=== PATIENT | female | born 1965 | race Caucasian/White ===

== ENCOUNTER 2022-06-18 08:05 | Outpatient (CLI) | payer OTHER, SELFPAY | END 2022-06-18 08:06 | disposition home or self-care (01) | PROVIDERS: PCP Physician Assistant Medical; Visit Provider Physician Assistant Medical | DX: R73.03 Prediabetes (principal); E78.5 Hyperlipidemia, unspecified; G25.81 Restless legs syndrome; R73.9 Hyperglycemia, unspecified | CPT/HCPCS: 80053; 80061; 84443 ==

== ENCOUNTER 2022-09-16 10:59 | Outpatient (CLI) | payer OTHER, SELFPAY | END 2022-09-16 11:00 | disposition home or self-care (01) | LOC: NFLDREF 09-17 19:49 | PROVIDERS: PCP Physician Assistant Medical; Referring Provider Physician Assistant Medical; Visit Provider Physician Assistant Medical | DX: E78.2 Mixed hyperlipidemia (principal) | CPT/HCPCS: 80061; 84450; 84460 ==

== ENCOUNTER 2022-10-07 12:53 | Outpatient (CLI) | payer OTHER, SELFPAY ==
--- NOTE | 2022-10-07 13:00 | CRLHL7_ITS ---
For Patients: As a result of the Century Cures Act, medical imaging exams and procedure reports are released immediately into your electronic medical record. You may view this report before your referring provider. If you have questions, please contact your health care provider. BILATERAL SCREENING MAMMOGRAM WITH COMPUTER-AIDED DETECTION TECHNIQUE: CC and MLO views were obtained. These mammographic images have been obtained using full-field digital technique. These mammographic images were interpreted with the benefit of computer-aided detection. COMPARISON FILM: 06/13/20, 07/17/17, 10/26/15 FINDINGS: There are scattered areas of fibroglandular density IMPRESSION: There is no radiographic evidence for malignancy. ASSESSMENT: BI-RADS Category 1: Negative RECOMMENDATION: Routine screening mammogram in 1 year. A lay language report of this examination will be provided to the patient. Rodney Smith M.D. Diagnostic Radiologist [email or web address] JEN/[email or web address] Transcribed: 3:35 p.anival marin/Dictated by: Rodney Smith MD @ 10/09/2022 12:43:00 PM (Electronically Signed)
== END 2022-10-07 12:54 | disposition home or self-care (01) ==
LOC: MAMMO 12:53
PROVIDERS: PCP Physician Assistant Medical; Visit Provider Physician Assistant Medical
DX: Z12.31 Encounter for screening mammogram for malignant neoplasm of breast (principal)
CPT/HCPCS: 77067

== ENCOUNTER 2023-01-03 11:00 | Outpatient (CLI) | payer OTHER, SELFPAY | END 2023-01-03 11:01 | disposition home or self-care (01) | LOC: NFLDREF 01-06 08:59 | PROVIDERS: PCP Physician Assistant Medical; Referring Provider Physician Assistant Medical; Visit Provider Physician Assistant Medical | DX: E78.2 Mixed hyperlipidemia (principal) | CPT/HCPCS: 80061; 84450; 84460 ==

== ENCOUNTER 2023-11-14 16:06 | Outpatient (CLI) | payer OTHER, SELFPAY ==
--- OUTSIDE RECORDS SUMMARY | 2023-11-14 16:11 | XMS_ITS | Referral Summary ---
Author Organization [place] Address [address] [place] [id number] Care Team Providers Care Car Sales Consultant Name Role Phone Jorge Palencia PA-C Primary Care Provider [phone] Encounters Date Type Department Care Team Description 10/21/2023 Travel 10/21/2023 2:11 PM CDT - 10/21/2023 11:59 PM CDT Hospital Encounter [facility] [address] [place] [phone] Israel Genao DPM Arthritis of right foot Discharge Disposition: Home or Self Care 10/02/2023 MyC Medical Advice [address] [place] [address] Israel Genao DPM Arthritis of right foot (Primary Dx) from Last 3 Months Allergies Active Allergy Reactions Criticality Noted Date Comments Ezetimibe Muscle Pain (Myalgia) 10/01/2019 Nickel 05/01/2018 Penicillins 05/01/2018 Unsure Statins Other (See Comments) 10/01/2019 Leg pain Medications Medication Sig Dispensed Refills Start Date End Date Status simvastatin (ZOCOR) 5 MG tablet Take 5 mg by mouth At Bedtime Active pramipexole (MIRAPEX) 0.25 MG tablet Take 0.25 mg by mouth At Bedtime Active Multiple Vitamins-Minerals (MULTIVITAMIN ADULT PO) Take 1 tablet by mouth daily Active FLUTICASONE PROPIONATE EX [place] 2 sprays in nostril daily as needed Active order for DMEIndications:PTTD (posterior tibial tendon dysfunction),S/P foot surgery, left Equipment being ordered: roll about scooter 1 Device 10/11/2019 Active Additional Information Patient not taking.Reported on 12/21/2019 order for DMEIndications:PTTD (posterior tibial tendon dysfunction),S/P foot surgery, left Equipment being ordered: RollAbout knee scooter x 3 months. Requested 2/2 to difficulty with crutches and instability because of limited upper body strength. 1 Device 10/12/2019 Active Additional Information Patient not taking.Reported on 12/21/2019 Active Problems Problem Noted Date Diagnosed Date PTTD (posterior tibial tendon dysfunction) 09/21 Overview: Added automatically from request for surgery [id number] Right supracondylar humerus fracture, closed, initial encounter 05/01/2018 Surgery follow-up 05/01/2018 Resolved Problems Problem Noted Date Diagnosed Date Resolved Date S/P foot surgery, left 11/29/201903/06 Social History Tobacco Use Types Packs/Day Years Used Date Smoking Tobacco: Never Smokeless Tobacco: Never Tobacco Cessation:Counseling Given: Yes Alcohol Use Standard Drinks/Week Comments Yes 0 (1 standard drink = 0.6 oz pur e alcohol) Occasionally Adolescent Education Answer Date Record ed Getting School Help Needed Not on file 11/24 Sex and Gender Information Value Date Recorded Sex Assigned at Not on file Gender Identity Not on file Sexual Orientation Not on file Last Filed Vital Signs Vital Sign Reading Time Taken Comments Blood Pressure 128/77 10/21/2023 2:35 PM CDT Pulse 78 10/21/2023 2:35 PM CDT Temperature 36.3 ??C (97.4 ??F) 10/07/2019 1:00 PM CD T Respiratory Rate 16 03/19/2023 1:23 PM TOY PAINTER Oxygen Saturation 97% 10/21/2023 2:35 PM CDT Inhaled Oxygen Concentration - - Weight 101.6 kg (224 lb) 04/01/2022 4:12 PM TOY PAINTER Height 175.3 cm (5' 9) 04/01/2022 4:12 PM TOY PAINTER Body Mass Index 33.08 04/01/2022 4:12 PM TOY PAINTER Plan of Treatment Not on file Medical Devices Implanted Type Area Manager Sourcing Device Identifier Shelf Expiration Date Model / Serial / Lot Imp Scr Syn Cortic 3.5x16mm Self Tap Ti 404.816 Implanted:Qty : 1 on 05/01/2018 by Omi Quintana MD at [facility] Metallic Hardware/Anc hor Right: Humerus SYNTHES-STRATEC 404.816 / / [id number] Imp Scr Syn Cortic 3.5x18mm Self Tap Ti 404.818 Implanted:Qty : 1 on 05/01/2018 by Omi Quintana MD at [facility] Metallic Hardware/Anc hor Right: Humerus SYNTHES-STRATEC 404.818 / / [id number] Imp Scr Syn Cortic 3.5x22mm Self Tap Ti 404.822 Implanted:Qty : 1 on 05/01/2018 by Omi Quintana MD at [facility] Metallic Hardware/Anc hor Right: Humerus SYNTHES-STRATEC 404.822 / / [id number] Imp Scr Syn Cortic 3.5x24mm Self Tap Ti 404.824 Implanted:Qty : 1 on 05/01/2018 by Omi Quintana MD at [facility] Metallic Hardware/Anc hor Right: Humerus SYNTHES-STRATEC 404.824 / / [id number] Imp Scr Syn Cortic 3.5x26mm Self Tap Ti 404.826 Implanted:Qty : 2 on 05/01/2018 by Omi Quintana MD at [facility] Metallic Hardware/Anc hor Right: Humerus SYNTHES-STRATEC 404.826 / / [id number] Imp Scr Syn Cortic 3.5x28mm Self Tap Ti 404.828 Implanted:Qty : 2 on 05/01/2018 by Omi Quintana MD at [facility] Metallic Hardware/Anc hor Right: Humerus SYNTHES-STRATEC 404.828 / / [id number] Imp Plate Syn Lcp [id number] 10h Ti 445.101 Implanted:Qty : 1 on 05/01/2018 by Omi Quintana MD at [facility] Metallic Hardware/Anc hor Right: Humerus SYNTHES-STRATEC 445.101 / / [id number] 4mm Low Profile Screws, Cannulated, Titanium, Partially Threaded, 36mm Length Implanted:Qty : 1 on 10/07/2019 by Israel Genao DPM at [facility] Left: Foot ARTHREX AR-8740-3 6PTS / / [id number] 4mm Low Profile Screws, Cannulated, Titanium, Partially Threaded, 48mm Length Implanted:Qty : 1 on 10/07/2019 by Israel Genao DPM at [facility] Left: Foot ARTHREX AR-8740-4 8PTS / / [id number] Procedures Procedure Name Priority Date/Time Associated Diagnosis Comments XR JOINT INJECTION SMALL RIGHT Routine 10/21/2023 3:18 PM CDT Arthritis of right foot GLUCOSE Routine 05/02/2018 5:35 AM TOY PAINTER Closed fracture of distal end of humerus, unspecified fracture morphology, initial encounter from Last 3 Months or Most Recently Relevant to Health Maintenance Results * XR Joint Injection Small Right (10/21/2023 3:18 PM CDT) Anatomical Region Laterality Modality Extremity Right Radio Fluoroscop y Impressions 10/21/2023 3:42 PM CDT IMPRESSION: ??Technically successful right second TMT joint steroid/anesthetic injection with favorable initial pain relief. Long-term results pending. SIMON CARR PA-C Narrative 10/21/2023 3:42 PM CDT XR JOINT INJECTION SMALL RIGHT ? 10/21/2023 3:18 PM ?? History: ??Right 2nd TMT joint pain; Arthritis of right foot. PROCEDURE: The risks (including bleeding, infection, and allergy to contrast and medications) and benefits of the procedure were explained to the patient and consent was obtained. ??1% lidocaine was used for local anesthesia. Using sterile technique and fluoroscopic guidance, a #25 gauge needle was placed into the right second TMT joint using a dorsal approach. ??Contrast was injected to confirm intraarticular location of the needle tip. Contrast seen across the mid foot. The steroid anesthetic mixture was then injected. Estimated blood loss during the procedure was less than 5 mL. No specimens collected. No initial complications. ?? Fluoro time: 0.3 minutes Images Obtained: 3 Medications: 3 mL 1% lidocaine, 1 mL of Isovue-M 200, 40 mg of Kenalog and 1 mL Marcaine 0.5% The patients pain level (0-10 scale) were as follows: PRE INJECTION ?? 6 POST INJECTION 0 Procedure Note Simon Carr PA-C - 10/21/2023 XR JOINT INJECTION SMALL RIGHT 10/21/2023 3:18 PM History: Right 2nd TMT joint pain; Arthritis of right foot. PROCEDURE: The risks (including bleeding, infection, and allergy to contrast and medications) and benefits of the procedure were explained to the patient and consent was obtained. 1% lidocaine was used for local anesthesia. Using sterile technique and fluoroscopic guidance, a #25 gauge needle was placed into the right second TMT joint using a dorsal approach. Contrast was injected to confirm intraarticular location of the needle tip. Contrast seen across the mid foot. The steroid anesthetic mixture was then injected. Estimated blood loss during the procedure was less than 5 mL. No specimens collected. No initial complications. Fluoro time: 0.3 minutes Images Obtained: 3 Medications: 3 mL 1% lidocaine, 1 mL of Isovue-M 200, 40 mg of Kenalog and 1 mL Marcaine 0.5% The patients pain level (0-10 scale) were as follows: PRE INJECTION 6 POST INJECTION 0 IMPRESSION: Technically successful right second TMT joint steroid/anesthetic injection with favorable initial pain relief. Long-term results pending. SIMON CARR PA-C Israel Genao DPM IMG DIAGNOSTIC IM AGING ORDERABLES * (ABNORMAL) Glucose (05/02/2018 5:35 AM TOY PAINTER) Glucose 108(H) 70 - 99 mg/dL 05/02/2018 6:32 AM TOY PAINTER [facility] Blood specimen (specimen) 05/02/2018 5:35 AM TOY PAINTER 05/02/2018 5:36 AM TOY PAINTER Omi Quintana MD LAB - BLOOD ORDERABL ES [facility] [address] [place] [address], [facility] [phone] from Last 3 Months or Most Recently Relevant to Health Maintenance Advance Directives For more information, please contact: [phone] * Full Code (Latest Code Status on File) Date Activated Date Inactivated Comments 05/01/2018 5:42 PM 05/02/2018 2:15 PM Question Answer Comments Code status determined by: Discussion with patie nt/legal decision maker * Full Code Date Activated Date Inactivated Comments 05/01/2018 1:15 PM 05/01/2018 5:41 PM Question Answer Comments Code status determined by: Discussion with patie nt/legal decision maker Care Teams Car Sales Consultant Relationship Specialty Start Date End Date Jorge Palencia PA-C [facility] [place] [address] [place] [address] PCP - General 05/01/18
--- OUTSIDE RECORDS SUMMARY | 2023-11-14 16:11 | XMS_ITS | Clinical Summary ---
Author Organization [employer] Address [address] [address] Care Team Providers Care Cigarette Machines Mechanic Name Role Phone Bruna Boss MD Primary Care Provider [phone] Source Comments You are receiving this document as you are listed as the primary care provider,follow-up provider, or the patient has been referred to you for consultation.This is in compliance with the Medicare and[facility] EHR Incentive Program,which states Providers who transition their patient to another setting of careor provider of care or refers their patient to another provider of care shouldprovide summary care record for each transition of care or referral. [employer] Allergies Active Allergy Reactions Criticality Noted Date Comments Nickel Rash 05/01/2018 Penicillins 11/21/2003 PN: LW Reaction: rash Medications Medication Sig Dispensed Refills Start Date End Date Status Multiple Vitamins-Minerals (MULTIVITAMIN OR) Take 1 tablet by mouth daily (every 24 hours). 100 13 11/21/2003 Active simvastatin (AKA ZOCOR) 20 MG tablet Take 1 tablet by mouth every evening. LW Comment:Needs Appt within 30 days LW Addl Instr:Indicated for: High Cholesterol 30 09/05/2009 Active pramipexole (MIRAPEX) 0.25 MG tablet Take 0.25 Tablets by mouth daily. 3 11/27/2018 Active Active Problems Problem Noted Date Diagnosed Date Hyperlipidemia 02/07/2006 Overview (10/05/2015): LW Onset: 2003 History of section 08/29/2002 Overview (10/23/2016): LW Onset: [id number] ; C Section Previous Comp Preg Immunizations Name Administration Dates Next Due Flu Vac Preserv Free (3+yrs) 01/30/2005,11/21/19 04 HepA-HepB (T[place]RIX, 18+ yrs) 08/17/2008 Influenza LAIV (Nasal, 2-49 yrs) 01/20/2007 Influenza, Unspecified Formulation 01/28/2003, Refusal To Vaccinate 08/17/2008,02/07/2006 TDAP (BOOSTRIX) 08/17/2008 Td 11/10/2001 Social History Tobacco Use Types Packs/Day Years Used Date Smoking Tobacco: Never Sex and Gender Information Value Date Recorded Sex Assigned at Not on file Gender Identity Not on file Sexual Orientation Not on file Last Filed Vital Signs Vital Sign Reading Time Taken Comments Blood Pressure 120/82 02/01/2019 1:01 PM UMBRELLA MENDER Pulse 100 02/01/2019 1:01 PM UMBRELLA MENDER Temperature 36.7 ??C (98.1 ??F) 04/23/2005 8:20 AM CS T C: 36.7 C Respiratory Rate - - Oxygen Saturation - - Inhaled Oxygen Concentration - - Weight 98.9 kg (218 lb) 02/01/2019 1:01 PM UMBRELLA MENDER Height 177.8 cm (5' 10) 02/01/2019 1:01 PM UMBRELLA MENDER Body Mass Index 31.28 02/01/2019 1:01 PM UMBRELLA MENDER Plan of Treatment Upcoming Encounters Date Type Department Care Team (Late st Contact Info) Description 04/30/2024 1:15 PM UMBRELLA MENDER Appointment [facility] [address] [place], [address] [place] [id number] [place] [address] [place] [address] [address] [place] [id number] Health Maintenance Due Date Last Done Comments Colon Cancer Screening Plan Due 1965 Hep C Screening (Preventive Services) 1965 MTM Covered 1965 HIV Screening (Preventive Services) 1981 Adult Preventive Visit 01/01/1984 HepA (2 of 3 - Hep A Twinrix risk 3-dose series) 09/14/2008 08/17/2008 HepB (2) 09/14/2008 08/17/2008 Cervical Cancer Screening Due 10/25/2010 10/24/2010, 08/17/2008, 06/29/2007, Additional history exists Cholesterol 08/17/2013 08/17/2008, 06/02, 10/09/2006, Additional history exists Mammogram 08/17/2014 08/17/2013, 01/03, 12/17/2007, Additional history exists Zoster/Shingles (1 of 2) 01/01/2016 COVID-19 Vaccine ( season) 2023 07/16/2021, 12/02/2020, 05/17/2020, Additional history exists Influenza (#1) 2023 12/14/2020, 12/02, 12/29/2018, Additional history exists DTaP/Tdap/Td (3 - Tdap) 11/27/2028 11/28/19 19, 08/17/2008, 11/10/2001 Hib Aged Out No longer eligi ble based on patient's age to complete this topic IPV (Polio) Aged Out No longer eligi ble based on patient's age to complete this topic MCV4 Aged Out No longer eligi ble based on patient's age to complete this topic Pneumococcal Aged Out No longer eligi ble based on patient's age to complete this topic Procedures Procedure Name Priority Date/Time Associated Diagnosis Comments MM MAMMOGRAM SCREENING BILAT W CAD Routine 01/30/2009 10:09 AM UMBRELLA MENDER ANATOMICAL PATH LIQUID BASED Routine 08/17/2008 11:41 AM CDT LIPID PANEL & DIRECT LDL (IF NEEDED) Routine 08/17/2008 10:06 AM CDT from Last 3 Months or Most Recently Relevant to Health Maintenance Results * (ABNORMAL) MM Mammogram Screening Bilat W CAD (01/30/2009 10:09 AM UMBRELLA MENDER) Anatomical Region Laterality Modality Breast Bilateral Mammography Narrative 02/01/2009 2:30 PM UMBRELLA MENDER Comparison is made to films from 08/14/2006 (bilateral) and films from 12/17/2007 (bilateral). Right Breast Findings: The breast is heterogeneously dense (51% - 75% fibroglandular). This may lower the sensitivity of mammography. An area of focal asymmetry is present and is seen only in the Right craniocaudal projection laterally. Since the last study, areas of focal asymmetry is more defined. Left Breast Findings: The breast is heterogeneously dense (51% - 75% fibroglandular). This may lower the sensitivity of mammography. No significant masses, calcifications or other abnormalities are seen. IMPRESSION: RIGHT BREAST: Focal asymmetry, more defined. Spot compression is recommended at this time. LEFT BREAST: Negative, no evidence of malignancy. Normal interval follow-up is recommended in 12 months. OVERALL ASSESSMENT - CATEGORY 0 - INCOMPLETE: NEED ADDITIONAL IMAGING EVALUATION END OF IMPRESSION bj Dictating LOYD SHERMAN MD Procedure Note Loyd Persaud - 10/24/2015 Comparison is made to films from 08/14/2006 (bilateral) and films from 12/17/2007 (bilateral). Right Breast Findings: The breast is heterogeneously dense (51% - 75% fibroglandular). This may lower the sensitivity of mammography. An area of focal asymmetry is present and is seen only in the Right craniocaudal projection laterally. Since the last study, areas of focal asymmetry is more defined. Left Breast Findings: The breast is heterogeneously dense (51% - 75% fibroglandular). This may lower the sensitivity of mammography. No significant masses, calcifications or other abnormalities are seen. IMPRESSION: RIGHT BREAST: Focal asymmetry, more defined. Spot compression is recommended at this time. LEFT BREAST: Negative, no evidence of malignancy. Normal interval follow-up is recommended in 12 months. OVERALL ASSESSMENT - CATEGORY 0 - INCOMPLETE: NEED ADDITIONAL IMAGING EVALUATION END OF IMPRESSION bj Dictating LOYD SHERMAN MD Bruna Boss MD RAD JOSE C * Pap Smear (08/17/2008 11:41 AM CDT) PAP Smear Liquid Based SEE TEXT No normal range HP CONVERSION Comment: Patient: [facility] ? CERVICAL CYTOLOGY REPORT Pathology # ??[id number] ?Date Obtained: ? Date Received: CYTOLOGIC IMPRESSION: Negative for intraepithelial lesion or malignancy. Verified 08/22/08 by: ??JLL ?(electronic signature) ? ADDITIONAL DATA LMP: CLINICAL HIST LIQUID BASED PAP CERVICAL SPECIMEN ADEQUACY: ?? Satisfactory. ENDOCERVICAL CELLS: ??Present. 08/17/2008 11:4 1 AM CDT Bruna Boss MD LAB_1 Performing Organization Address [facility] de Phone Number HP CONVERSION * (ABNORMAL) Lipid Panel and Direct LDL(If Needed) (08/17/2008 10:06 AM CDT) Hours Fasting 12.0 Hours HP CONVERSION Cholesterol/HDL Ratio Screen 3.1 No normal range HP CONVERSION Cholesterol 220(H) <200 mg/dL HP CONVERSION HDL Cholesterol 71 >40 mg/dL HP CONVERSION Triglycerides 184(H) 0 - 149 mg/dL HP CONVERSION LDL Calculated 112 0 - 130 mg/dL HP CONVERSION Comment: 08/17/2008 10:0 6 AM CDT Bruna Boss MD LAB_1 Performing Organization Address [facility] de Phone Number HP CONVERSION from Last 3 Months or Most Recently Relevant to Health Maintenance Care Teams Cigarette Machines Mechanic Relationship Specialty Start Date End Date Bruna Boss MD [address] [place] [address] PCP - General 06/04/10
--- OUTSIDE RECORDS SUMMARY | 2023-11-14 16:11 | XMS_ITS | Encounter Summary ---
Author Organization [facility] Address [address] [place] [address] Care Team Providers Care Family Medicine Chair Name Role Phone Jorge Palencia PA-C Primary Care Provider [phone] Israel Genao DPM Unavailable [phone] Reason for Referral * Diagnostic Imaging XR (Routine) - Closed Specialty Diagnoses / Procedures Referred By Contac t Referred To Contact Radiology. Diagnoses Arthritis of right foot Procedures XR Joint Injection Small Right Israel Genao DPM [address] [employer] [address] [place] [address] Xray [address] [place] [address] Referral ID Status Reason Start Date Expiration Date Visits Re quested Visits Authorized [id number] Closed 10/03/2023 10/02/2024 1 1 Reason for Visit * Diagnostic Imaging XR (Routine) - Closed Specialty Diagnoses / Procedures Referred By Contac t Referred To Contact Radiology. Diagnoses Arthritis of right foot Procedures XR Joint Injection Small Right Israel Genao DPM [address] [place] [address] Sh Xray [address] [place] [address] Referral ID Status Reason Start Date Expiration Date Visits Re quested Visits Authorized [id number] Closed 10/03/2023 10/02/2024 1 1 Encounter Details Date Type Department Care Team (Latest Contact Info) Description 10/21/2023 2:11 PM CDT - 10/21/2023 11:59 PM CDT Hospital Encounter [facility] [address] [place] [address] Israel Genao DPM [address] [facility] [address] [place] [address] Arthritis of right foot Discharge Disposition: Home or Self Care Social History Tobacco Use Types Packs/Day Years Used Date Smoking Tobacco: Never Smokeless Tobacco: Never Alcohol Use Standard Drinks/Week Comments Yes 0 (1 standard drink = 0.6 oz pur e alcohol) Occasionally Adolescent Education Answer Date Record ed Getting School Help Needed Not on file 11/24 Sex and Gender Information Value Date Recorded Sex Assigned at Not on file Gender Identity Not on file Sexual Orientation Not on file documented as of this encounter Last Filed Vital Signs Vital Sign Reading Time Taken Comments Blood Pressure 128/77 10/21/2023 2:35 PM CDT Pulse 78 10/21/2023 2:35 PM CDT Temperature - - Respiratory Rate - - Oxygen Saturation 97% 10/21/2023 2:35 PM CDT Inhaled Oxygen Concentration - - Weight - - Height - - Body Mass Index - - documented in this encounter Discharge Instructions * Discharge Instructions* Beth Powell M - 10/21/2023 2:36 PM CDT JOINT STEROID INJECTION DISCHARGE INSTRUCTIONS What to expect After the procedure, you may feel some temporary relief from the local anesthetic, but that will likely wear off within a few hours. Your symptoms may then return to pre-procedure level, or even be temporarily worse for a day or two. For many people, the steroid begins to provide some relief within 2-3 days, but it can take up to 2weeks. If you have no improvement in your symptoms after two weeks, please contact your referring provider to discuss next steps. What to do Minimize your activity today. You may resume your normal activity tomorrow as tolerated. Avoid vigorous or strenuous activity until your symptoms improve, or as directed by your referring provider. You may shower tomorrow, but do not submerge in bathtub, hot tub or pool for 48 hours. Use ice packs as needed for discomfort. You may resume all medications, including blood thinners. You may take over the counter acetaminophen (Tylenol) or ibuprofen (Motrin, Advil) for mild discomfort after the procedure. What to watch for Bruising or slight swelling at the puncture site can be normal. If you begin to develop redness or excessive swelling at the site, fever over 1010F, notable increase in pain, weakness, or numbness, please contact your primary care or referring provider. Side effects from the steroid are often mild and go away in a few days. Common side effects may include facial flushing, restlessness, irritability, difficulty sleeping, elevated blood pressure, and increased blood sugar. If you have diabetes, monitor your blood sugar closely. Contact the provider who manages your diabetes to help you control your blood sugar if needed. If you have questions or concerns You may contact the [facility] Radiology Department at [phone] between 8am-4:30pm Friday through Friday. If you have urgent questions outside of these normal business hours, please contact the [facility] on-call physician at [phone]. The provider who performed your procedure was Simon Carr PA-C documented in this encounter Medications at Time of Discharge Medication Sig Dispensed Refills Start Date End Date FLUTICASONE PROPIONATE EX [place] 2 sprays in nostril daily as needed Multiple Vitamins-Minerals (MULTIVITAMIN ADULT PO) Take 1 tablet by mouth daily order for DMEIndications:PTTD (posterior tibial tendon dysfunction),S/P foot surgery, left Equipment being ordered: RollAbout knee scooter x 3 months. Requested 2/2 to difficulty with crutches and instability because of limited upper body strength. 1 Device 10/12/2019 order for DMEIndications:PTTD (posterior tibial tendon dysfunction),S/P foot surgery, left Equipment being ordered: roll about scooter 1 Device 10/11/2019 pramipexole (MIRAPEX) 0.25 MG tablet Take 0.25 mg by mouth At Bedtime simvastatin (ZOCOR) 5 MG tablet Take 5 mg by mouth At Bedtime documented as of this encounter Plan of Treatment Not on file documented as of this encounter Procedures Procedure Name Priority Date/Time Associated Diagnosis Comments XR JOINT INJECTION SMALL RIGHT Routine 10/21/2023 3:18 PM CDT Arthritis of right foot documented in this encounter Results * XR Joint Injection Small Right [...] results pending. SIMON CARR PA-C Israel Genao DP IMG DIAGNOSTIC IM AGING ORDERABLES documented in this encounter Visit Diagnoses Diagnosis Arthritis of right foot Unspecified arthropathy, ankle and foot documented in this encounter Administered Medications Inactive Administered Medications - up to 3 most recent administrations Medication Order MAR Action Action Date Dose Rate Site ethyl chloride skin refrigerant, spray for local anesthesia 1 Application Topical, ONCE, On Fri10/21/23 at 1500, For 1 dose, Apply topically for four to seven seconds from six inches away just prior to analgesic affect needed. $Given 10/21/2023 3:06 PM CDT 1 Application iopamidol (ISOVUE-M 200) solution 10 mL 10 mL, INTRA-ARTICULAR, ONCE, On Fri10/21/23 at 1500, For 1 dose $Given by Other Clinician 10/21/2023 3:07 PM CDT 0.5 mLs lidocaine (PF) (XYLOCAINE) 1 % injection 30 mL 30 mL, Other, ONCE, On Fri10/21/23 at 1500, For 1 dose $Given 10/21/2023 3:08 PM CDT 4 mLs triamcinolone (KENALOG-40) injection 40 mg 40 mg, INTRA-ARTICULAR, ONCE, On Fri10/21/23 at 1500, For 1 dose $Given 10/21/2023 3:08 PM CDT 40 mg documented in this encounter Care Teams Family Medicine Chair Relationship Specialty Start Date End Date Jorge Palencia PA-C [address] [place] [address] PCP - General 05/01/18 Israel Genao DPM [address] [address] Assigned Musculoskeletal Provider 04/06/22 10/23/23 documented as of this encounter
--- OUTSIDE RECORDS SUMMARY | 2023-11-14 16:11 | XMS_ITS | Encounter Summary ---
Author Organization [facility] Address [address] [place] [address] Care Team Providers Care Investment Sales Assistant Name Role Phone Jorge Palencia PA-C Primary Care Provider [phone] Israel Genao DPM Unavailable [phone] Encounter Details Date Type Department Care Team (Latest Contact Info) Description 10/21/2023 Travel Social History Tobacco Use Types Packs/Day Years [...] on file documented as of this encounter Plan of Treatment Not on file documented as of this encounter Visit Diagnoses Not on filedocumented in this encounter Care Teams Investment Sales Assistant Relationship Specialty Start Date End Date Jorge Palencia PA-C [address] [place] [address] PCP - General 05/01/18 Israel Genao DPM [address] [facility] [address] [place] [address] Assigned Musculoskeletal Provider 04/06/22 10/23/23 documented as of this encounter
--- OUTSIDE RECORDS SUMMARY | 2023-11-14 16:11 | XMS_ITS | Clinical Summary ---
Author Organization [facility] Address [address] [place] [address] Care Team Providers Care Artist'S Representative Name Role Phone Jorge Palencia PA-C Primary Care Provider [phone] Allergies Active Allergy Reactions Criticality Noted Date [...] by mouth daily Active FLUTICASONE PROPIONATE EX [place] 2 sprays in nostril daily as needed [...] Overview: Added automatically from request for surgery [id number] Right supracondylar humerus fracture, closed, initial encounter 05/01/2018 Surgery follow-up 05/01/2018 Resolved Problems Problem Noted Date Diagnosed Date Resolved Date S/P foot surgery, left 11/29/201903/06 Encounters Date Type Department Care Team Description 10/21/2023 2:11 PM CDT - 10/21/2023 11:59 PM CDT Hospital Encounter [facility] Imaging [address] [place] [phone] Israel Genao DPM Arthritis of right foot Discharge Disposition: Home or Self Care 10/21/2023 Travel 10/02/2023 MyC Medical Advice [facility] [address] [facility] [address] [place] [address] Israel Genao DPM Arthritis of right foot (Primary Dx) from Last 3 Months Social History Tobacco Use Types Packs/Day Years [...] T Respiratory Rate 16 03/19/2023 1:23 PM DEFENSE ANALYST Oxygen Saturation 97% 10/21/2023 2:35 PM CDT Inhaled Oxygen Concentration - - Weight 101.6 kg (224 lb) 04/01/2022 4:12 PM DEFENSE ANALYST Height 175.3 cm (5' 9) 04/01/2022 4:12 PM DEFENSE ANALYST Body Mass Index 33.08 04/01/2022 4:12 PM DEFENSE ANALYST Plan of Treatment Health Maintenance Due Date Last Done Comments ADVANCE CARE PLANNING 1965 ANNUAL REVIEW OF HM ORDERS 1965 CT COLONOGRAPHY 1965 FIT 1965 FLEX SIG 1965 LIPID 1965 MAMMO SCREENING 1965 YEARLY PREVENTIVE VISIT 1965 COLONOSCOPY 01/01/1976 HIV SCREENING 1980 HEPATITIS C SCREENING 01/01/1984 PAP 1986 HEPATITIS B IMMUNIZATION (2 of 3 - Hep B Twinrix 3-dose series) 09/14/2008 08/17/2008 ZOSTER IMMUNIZATION (1 of 2) 01/01/2016 GLUCOSE 05/02/2021 05/02/2018, 05/01/2018 PHQ-2 (once per calendar year) 2023 INFLUENZA VACCINE (#1) 2023 , 11/20/2021, 11/20/2021, Additional history exists COLORECTAL CANCER SCREENING 10/11/2026 sDNA (Cologuard) 10/11/2026 10/12/2023 DTAP/TDAP/TD IMMUNIZATION (3 - Td or Tdap) 11/27/2028 11/27/2018, 08/17/2008, 11/10/2001 COVID-19 Vaccine Completed 01/03/2023, , 12/02/2020, Additional history exists HPV IMMUNIZATION Aged Out No longer e ligible based on patient's age to complete this topic MENINGITIS IMMUNIZATION Aged Out No l onger eligible based on patient's age to complete this topic Pneumococcal Vaccine: Pediatrics (0 to 5 Years) and At-Risk Patients (6 to 64 Years) Aged Out No longer eligible based on patient's age to complete this topic RSV MONOCLONAL ANTIBODY Aged Out No l onger eligible based on patient's age to complete this topic Medical Devices Implanted Type Area Diversity Manager Device Identifier Shelf Expiration Date Model / Serial / Lot Imp Scr Syn Cortic 3.5x16mm Self Tap Ti 404.816 Implanted:Qty : 1 on 05/01/2018 by Omi Quintana MD at [facility] Metallic Hardware/Anc hor Right: Humerus SYNTHES-STRATEC 404.816 / / [id number] Imp Scr Syn Cortic 3.5x18mm Self Tap Ti 404.818 Implanted:Qty : 1 on 05/01/2018 by Omi Quintana MD at [facility] Metallic Hardware/Anc hor Right: Humerus SYNTHES-STRATEC 404.818 / / [id number] Imp Scr Syn Cortic 3.5x22mm Self Tap Ti 404.822 Implanted:Qty : 1 on 05/01/2018 by Omi Quintana MD at [facility] Metallic Hardware/Anc hor Right: Humerus SYNTHES-STRATEC 404.822 / / [id number] Imp Scr Syn Cortic 3.5x24mm Self Tap Ti 404.824 Implanted:Qty : 1 on 05/01/2018 by Omi Quintana MD at [facility] Metallic Hardware/Anc hor Right: Humerus SYNTHES-STRATEC 404.824 / / [id number] Imp Scr Syn Cortic 3.5x26mm Self Tap Ti 404.826 Implanted:Qty : 2 on 05/01/2018 by Omi Quintana MD at [facility] Metallic Hardware/Anc hor Right: Humerus SYNTHES-STRATEC 404.826 / / 8006 [id number] Imp Scr Syn Cortic 3.5x28mm Self Tap Ti 404.828 Implanted:Qty : 2 on 05/01/2018 by Omi Quintana MD at [facility] Metallic Hardware/Anc hor Right: Humerus SYNTHES-STRATEC 404.828 / / [id number] Imp Plate Syn Lcp 3.4q446nh 10h Ti 445.101 Implanted:Qty : 1 on 05/01/2018 by Omi Quintana MD at [facility] Metallic Hardware/Anc hor Right: Humerus SYNTHES-STRATEC 445.101 / / [id number] 4mm Low Profile Screws, Cannulated, Titanium, Partially Threaded, 36mm Length Implanted:Qty : 1 on 10/07/2019 by Israel Genao DPM at [facility] Left: Foot ARTHREX AR-8740-3 6PTS / / [id number] 4mm Low Profile Screws, Cannulated, Titanium, Partially Threaded, 48mm Length Implanted:Qty : 1 on 10/07/2019 by Israel Genao DPM at [facility] Left: Foot ARTHREX AR-8740-4 8PTS / / [id number] Procedures Procedure Name Priority Date/Time Associated Diagnosis Comments XR JOINT INJECTION SMALL RIGHT Routine 10/21/2023 3:18 PM CDT Arthritis of right foot GLUCOSE Routine 05/02/2018 5:35 AM DEFENSE ANALYST Closed fracture of distal end of humerus, [...] ORDERABLES * (ABNORMAL) Glucose (05/02/2018 5:35 AM DEFENSE ANALYST) Glucose 108(H) 70 - 99 mg/dL 05/02/2018 6:32 AM DEFENSE ANALYST [facility] Blood specimen (specimen) 05/02/2018 5:35 AM DEFENSE ANALYST 05/02/2018 5:36 AM DEFENSE ANALYST Omi Quintana MD LAB - BLOOD ORDERABL ES [facility] [address] [place] [address], [facility] [phone] from Last 3 Months or Most Recently Relevant to Health Maintenance Advance Directives For more information, please contact: [phone] * Full Code (Latest Code Status on File) Date Activated Date Inactivated Comments 05/01/2018 5:42 PM 05/02/2018 2:15 PM Question Answer Comments Code status determined by: Discussion with patie nt/legal decision maker * Full Code Date Activated Date Inactivated Comments 05/01/2018 1:15 PM 05/01/2018 5:41 PM Question Answer Comments Code status determined by: Discussion with patie nt/legal decision maker Care Teams Artist'S Representative Relationship Specialty Start Date End Date Jorge Palencia PA-C [place] [address] [place] [address] PCP - General 05/01/18
--- OUTSIDE RECORDS SUMMARY | 2023-11-14 16:12 | XMS_ITS | Encounter Summary ---
Author Organization [facility] Address [address] [place] [address] Care Team Providers Care Blanching Machine Operator Name Role Phone Jorge Palencia PA-C Primary Care Provider [phone] Israel Genao DPM Unavailable [phone] Israel Genao DPM Unavailable [phone] Encounter Details Date Type Department Care Team (Late st Contact Info) Description 09/27/2019 [facility] [address] [place] [address] [address] [place] [address] Krista Gutiérrez Social History Tobacco Use Types Packs/Day Years Used Date Smoking Tobacco: Never Smokeless Tobacco: Never Alcohol Use Standard Drinks/Week Comments Yes 0 (1 standard drink = 0.6 oz pur e alcohol) Occasionally Sex and Gender Information Value Date Recorded Sex Assigned at Not on file Gender Identity Not on file Sexual Orientation Not on file COVID-19 Exposure Response Date Recorded In the last month, have you been in contact with someone who was confirmed or suspected to have Coronavirus / COVID-19? No / Unsure 09/17/2019 8:22 AM CDT documented as of this encounter Plan of Treatment Not on file documented as of this encounter Visit Diagnoses Not on filedocumented in this encounter Care Teams Blanching Machine Operator Relationship Specialty Start Date End Date Jorge Palencia PA-C [facility] [address] [place] [address] [place] [address] PCP - General 05/01/18 [place] Genao DPM [address] [facility] [address] [place] [address] Assigned Musculoskeletal Provider 12/24/19 09/21/21 Israel Genao DPM [address] [facility] [address] [place] [address] Assigned Musculoskeletal Provider 04/06/22 10/23/23 documented as of this encounter
--- OUTSIDE RECORDS SUMMARY | 2023-11-14 16:12 | XMS_ITS | Encounter Summary ---
Author Organization [facility] Address [address] [place] [address] Care Team Providers Care Neurology Stroke Physician Name Role Phone Jorge Palencia PA-C Primary Care Provider [phone] Israel Genao DPM Unavailable [phone] Israel Genao DPM Unavailable [phone] Reason for Referral * Diagnostic Imaging XR (Routine) - Closed Specialty Diagnoses / Procedures Referred By Jose barajas Referred To Contact Diagnoses Arthritis of right foot Procedures XR Joint Injection Small Right Israel Genao DPM [address] [employer] [facility] [address] [place] [address] Referral ID Status Reason Start Date Expiration Date Visits Re quested Visits Authorized [id number] Closed 04/16/2021 04/16/2022 1 1 LATION NOZZLEMAN Reason for Visit * Reason Onset Date Comments Procedure 04/13/2021 Encounter Details Date Type Department Care Team (Late st Contact Info) Description 04/13/2021 [facility] [place] [place] Medical Advice [facility] [address] [facility] [address] [place] [address] Israel Genao DPM [address] [facility] [address] [place], [place] [address] Procedure Social History Tobacco Use Types Packs/Day Years Used Date Smoking Tobacco: Never Smokeless Tobacco: Never Alcohol Use Standard Drinks/Week Comments Yes 0 (1 standard drink = 0.6 oz pur e alcohol) Occasionally Sex and Gender Information Value Date Recorded Sex Assigned at Not on file Gender Identity Not on file Sexual Orientation Not on file documented as of this encounter Miscellaneous Notes * Telephone Encounter - Oanh Westfall ATC - 04/16/2021 12:15 PM CST Please advise if you would like to see patient in clinic or if repeat right 2nd tarsometatarsal joint injection order can be placed, as in the past. Thank you. Oanh Westfall ATC LATION NOZZLEMAN documented in this encounter Plan of Treatment Not on file documented as of this encounter Results * XR Joint Injection Small Right (05/09/2021 4:23 PM INSULATION NOZZLEMAN) Anatomical Region Laterality Modality Extremity Right Radio Fluoroscop y Impressions 05/10/2021 2:09 PM INSULATION NOZZLEMAN IMPRESSION: ??Technically successful right 2nd TMT joint steroid/anesthetic injection with favorable initial pain relief. Long-term results pending. SIMON CARR PA-C Narrative 05/10/2021 2:09 PM INSULATION NOZZLEMAN XR JOINT INJECTION SMALL RIGHT ? 05/09/2021 4:23 PM ?? History: ??Right 2nd tarsometatarsal joint pain; Arthritis of right foot Steroid injection requested. PROCEDURE: The risks (including bleeding, infection, and allergy to contrast and medications) and benefits of the procedure were explained to the patient and consent was obtained. ??1% lidocaine was used for local anesthesia. Using sterile technique and fluoroscopic guidance, a #25 gauge needle was placed into the right 2nd TMT joint using a dorsal approach. ??0.5 ml of contrast was injected to confirm intraarticular location of the needle tip. The steroid anesthetic mixture was then injected. Estimated blood loss during the procedure was less than 5 mL. No specimens collected. No initial complications. Fluoro time: 0.5 Images Obtained: 1 Medications: 3 ml of lidocaine 1%, 0.5 ml of Isovue M200, 40 mg of Kenalog, 1 lidocaine 1% The patients pain level (0-10 scale) were as follows: PRE INJECTION ?? 6 POST INJECTION 2 Procedure Note Simon Carr PA-C - 05/10/2021 XR JOINT INJECTION SMALL RIGHT 05/09/2021 4:23 PM History: Right 2nd tarsometatarsal joint pain; Arthritis of right foot Steroid injection requested. PROCEDURE: The risks (including bleeding, infection, and allergy to contrast and medications) and benefits of the procedure were explained to the patient and consent was obtained. 1% lidocaine was used for local anesthesia. Using sterile technique and fluoroscopic guidance, a #25 gauge needle was placed into the right 2nd TMT joint using a dorsal approach. 0.5 ml of contrast was injected to confirm intraarticular location of the needle tip. The steroid anesthetic mixture was then injected. Estimated blood loss during the procedure was less than 5 mL. No specimens collected. No initial complications. Fluoro time: 0.5 Images Obtained: 1 Medications: 3 ml of lidocaine 1%, 0.5 ml of Isovue M200, 40 mg of Kenalog, 1 lidocaine 1% The patients pain level (0-10 scale) were as follows: PRE INJECTION 6 POST INJECTION 2 IMPRESSION: Technically successful right 2nd TMT joint steroid/anesthetic injection with favorable initial pain relief. Long-term results pending. SIMON CARR PA-C Israel Genao DPM IMG DIAGNOSTIC IM AGING ORDERABLES documented in this encounter Visit Diagnoses Diagnosis Arthritis of right foot- Primary Unspecified arthropathy, ankle and foot Arthritis of right foot Unspecified arthropathy, ankle and foot documented in this encounter Care Teams Neurology Stroke Physician Relationship Specialty Start Date End Date Jorge Palencia PA-C [facility] [address] [place] [address] PCP - General 05/01/18 Israel Genao DPM [address] [facility] [address] [place] [address] Assigned Musculoskeletal Provider 12/24/19 09/21/21 Israel Genao DPM [address] [address] Assigned Musculoskeletal Provider 04/06/22 10/23/23 documented as of this encounter
--- OUTSIDE RECORDS SUMMARY | 2023-11-14 16:12 | XMS_ITS | Encounter Summary ---
Author Organization [facility] Address [address] [place] [address] Care Team Providers Care Clam Sorter Name Role Phone oJrge Palencia PA-C Primary Care Provider [phone] Israel Genao DPM Unavailable [phone] Reason for Referral * Diagnostic Imaging XR (Routine) - Closed Specialty Diagnoses / Procedures Referred By Contmery t Referred To Contact Radiology. Diagnoses Arthritis of right foot Procedures XR Joint Injection Small Right [place] Genao D[place] [address] [employer] [address] [place] [address] Sh Xray [address] [facility] [place] [address] Referral ID Status Reason Start Date Expiration Date Visits Re quested Visits Authorized [id number] Closed 10/03/2023 10/02/2024 1 1 Encounter Details Date Type Department Care Team (Late st Contact Info) Description 10/02/2023 [facility] Medical Advice [facility] [address] [facility] [address] [place] [address] Israel Genao D[place] [address] [facility] [address] [place] [address] Arthritis of right foot (Primary Dx) Social History Tobacco Use Types Packs/Day Years [...] encounter Miscellaneous Notes * Telephone Encounter - Loida Juarez ATC - 10/03/2023 8:24 AM CDT Patient last seen in clinic on 04/01/22 for arthritis of right foot. She was referred for x-ray guided steroid injection at that time and has since had injections on 05/15/22, 10/04/22 and 03/19/23. Please advise if you're agreeable to ordering repeat injection or clinic follow up is needed. Loida Juarez ATC documented in this encounter Plan of Treatment [...] foot documented in this encounter Care Teams Clam Sorter Relationship Specialty Start Date End Date Jorge Palencia PA-C [facility] [address] [place] [address] PCP - General 05/01/18 Israel Genao DPM [address] [address] Assigned Musculoskeletal Provider 04/06/22 10/23/23 documented as of this encounter
--- OUTSIDE RECORDS SUMMARY | 2023-11-14 16:12 | XMS_ITS | Encounter Summary ---
Author Organization [facility] Address [address] [place] [address] Care Team Providers Care Floor Finisher Name Role Phone Jorge Palencia PA-C Primary Care Provider [phone] Israel Genao DPM Unavailable [phone] Israel Genao DPM Unavailable [phone] Reason for Referral * Diagnostic Imaging XR (Routine) - Closed Specialty Diagnoses / Procedures Referred By Jose barajas Referred To Contact Radiology. Diagnoses Arthritis of right foot Procedures XR Joint Injection Small Right Israel Genao DPM [address] [place] [address] Rh Xray [place] [address] [place] [address] Referral ID Status Reason Start Date Expiration Date Visits Re quested Visits Authorized [id number] Closed 07/26/2020 07/26/2021 1 1 Encounter Details Date Type Department Care Team (Late st Contact Info) Description 07/24/2020 MyC Medical Advice [facility] [place] [address] [place] [address], [address] [place] [address] Israel Genao DPM [id number] [facility] [address] [place] [address] Arthritis of right foot (Primary [...] encounter Miscellaneous Notes * Telephone Encounter - Tereza Solano - 07/25/2020 4:24 PM CDT Please see patient's [employer] message and advise. Patient last had cortisone injection - right 2nd TMT joint on 04/05/20 and is requesting repeat injection. Please see order pending and advise. Tereza Solano MBA, ATC documented in this encounter Plan of Treatment Not on file documented as of this encounter Results * XR Joint Injection Small Right (08/16/2020 2:09 PM CDT) Anatomical Region Laterality Modality Extremity Right Radio Fluoroscop y Impressions 08/16/2020 3:44 PM CDT IMPRESSION: ??Technically successful right foot steroid/anesthetic injection with favorable initial pain relief. ??Long-term results pending. JEAN CARLOS GARVIN PA-C Narrative 08/16/2020 3:44 PM CDT XR JOINT INJECTION SMALL RIGHT ? 08/16/2020 2:09 PM ?? History: ??Arthritis of right foot. PROCEDURE: The risks (including bleeding, infection, and allergy to contrast and medications) and benefits of the procedure were explained to the patient and consent was obtained. ??1% lidocaine was used for local anesthesia. Using sterile technique and fluoroscopic guidance, a #25 gauge needle was placed into the right second tarsometatarsal joint using a dorsal approach. ??Contrast was injected to confirm intraarticular location of the needle tip. No initial complications. ?? Fluoro time: 0.6 minutes. Number of Images: 2 Medications: 40 mg Kenalog, 1 mL Marcaine 0.5% The patients pain level (0-10 scale) were as follows: PRE INJECTION ?? Right foot ?5 ?? POST INJECTION Right foot ?0-1 ?? Procedure Note Jean Carlos Garvin PA-C - 08/16/2020 XR JOINT INJECTION SMALL RIGHT 08/16/2020 2:09 PM History: Arthritis of right foot. PROCEDURE: The risks (including bleeding, infection, and allergy to contrast and medications) and benefits of the procedure were explained to the patient and consent was obtained. 1% lidocaine was used for local anesthesia. Using sterile technique and fluoroscopic guidance, a #25 gauge needle was placed into the right second tarsometatarsal joint using a dorsal approach. Contrast was injected to confirm intraarticular location of the needle tip. No initial complications. Fluoro time: 0.6 minutes. Number of Images: 2 Medications: 40 mg Kenalog, 1 mL Marcaine 0.5% The patients pain level (0-10 scale) were as follows: PRE INJECTION Right foot 5 POST INJECTION Right foot 0-1 IMPRESSION: Technically successful right foot steroid/anesthetic injection with favorable initial pain relief. Long-term results pending. JEAN CARLOS GARVIN PA-C Israel Genoa DPM [facility] ORDERABLES documented in this encounter Visit Diagnoses Diagnosis Arthritis of right foot- Primary Unspecified arthropathy, ankle and foot Arthritis of right foot Unspecified arthropathy, ankle and foot documented in this encounter Care Teams Floor Finisher Relationship Specialty Start Date End Date Jorge Palencia PA-C [facility] [address] [place] [address] PCP - General 05/01/18 Israel Genao DPM [address] [facility] [address] [place] [address] Assigned Musculoskeletal Provider 12/24/19 09/21/21 Israel Genao DPM [id number] [address] Assigned Musculoskeletal Provider 04/06/22 10/23/23 documented as of this encounter
--- OUTSIDE RECORDS SUMMARY | 2023-11-14 16:12 | XMS_ITS | Encounter Summary ---
Author Organization [facility] Address [address] [place] [address] Care Team Providers Care Underwriting Technician Name Role Phone Jorge Palencia PA-C Primary Care Provider [phone] Israel Genao DPM Unavailable [phone] Reason for Referral * Diagnostic Imaging XR (Routine) - Closed Specialty Diagnoses / Procedures Referred By Contmery t Referred To Contact Radiology. Diagnoses Arthritis of right foot Procedures XR Joint Injection Small Right Israel Genao DPM [address] [place] [address] Sh Xray [address] [facility] [place] [place] [address] Referral ID Status Reason Start Date Expiration Date Visits Re quested Visits Authorized [id number] Closed 09/30/2022 09/30/2023 1 1 Encounter Details Date Type Department Care Team (Late st Contact Info) Description 09/26/2022 [facility] Medical Advice [facility] [address] [facility] [address] [place] [address] Israel Genao DPM [address] [facility] [address] [place] [address] Arthritis of right foot (Primary [...] Results * XR Joint Injection Small Right (10/04/2022 2:45 PM CDT) Anatomical Region Laterality Modality Extremity Right Radio Fluoroscop y Impressions 10/04/2022 2:54 PM CDT IMPRESSION: ??Technically successful right foot steroid/anesthetic injection with favorable initial pain relief. ??Long-term results pending. SIMON CARR PA-C Narrative 10/04/2022 2:54 PM CDT XR JOINT INJECTION SMALL RIGHT ? 10/04/2022 2:45 PM ?? 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 Request for steroid injection. PROCEDURE: The risks (including bleeding, infection, and [...] ?? Fluoro time: 0.3 minutes Images Obtained: 1 Medications: 3 mL 1% lidocaine, 0.5 mL of Isovue-M 200, 40 mg Kenalog and 1 mL lidocaine 1% The patients pain level (0-10 scale) were as follows: PRE INJECTION ? 6 POST INJECTION ? 0 ?? Procedure Note Simon Carr PA-C - 10/04/2022 XR JOINT INJECTION SMALL RIGHT 10/04/2022 2:45 PM History: Right 2nd tarsometatarsal joint arthritis; Arthritis of right foot. Request for steroid injection. PROCEDURE: The risks (including bleeding, infection, and [...] complications. Fluoro time: 0.3 minutes Images Obtained: 1 Medications: 3 mL 1% lidocaine, 0.5 mL of Isovue-M 200, 40 mg Kenalog and 1 mL lidocaine 1% The patients pain level (0-10 scale) were as follows: PRE INJECTION 6 POST INJECTION 0 IMPRESSION: Technically successful right foot steroid/anesthetic injection with favorable initial pain relief. Long-term results pending. SIMON CARR PA-C Israel Genao DPM [facility] ORDERABLES documented in this encounter Visit Diagnoses Diagnosis Arthritis of right foot- Primary Unspecified arthropathy, ankle and foot Arthritis of right foot Unspecified arthropathy, ankle and foot documented in this encounter Care Teams Underwriting Technician Relationship Specialty Start Date End Date Jorge Palencia PA-C [address] [place] [address] PCP - General 05/01/18 Israel Genao DPM [address] [facility] [address] [place] [address] Assigned Musculoskeletal Provider 04/06/22 10/23/23 documented as of this encounter
--- OUTSIDE RECORDS SUMMARY | 2023-11-14 16:12 | XMS_ITS | Encounter Summary ---
Author Organization [facility] Address [address] [place] [address] Care Team Providers Care Printer'S Devil Name Role Phone Jorge Palencia PA-C Primary Care Provider [phone] Israel Genao DPM Unavailable [phone] Israel Genao DPM Unavailable [phone] Reason for Visit * Reason Onset Date Comments Orders 10/11/2019 knee scooter Encounter Details Date Type Department Care Team (Late st Contact Info) Description 10/11/2019 MyC Medical Advice [facility] [address] [facility], [address] [place] [address] Israel Genao DPM [address] [facility] [address] [place] [address] Orders (knee scooter) Social History Tobacco Use Types Packs/Day Years [...] have Coronavirus / COVID-19? No / Unsure 10/07/2019 7:02 AM CDT documented as of this encounter Miscellaneous Notes * Telephone Encounter - Israel Genao DPM - 10/12/2019 12:55 PM CDT Patient was placed on crutches post-operatively sp flatfoot reconstruction. Because of limited upper body strength and instability on the crutches, she requested an order for a [employer]About knee scooter. An order was signed. Israel Genao DPM [facility] [phone] * Telephone Encounter - Sunshine Farrell RN - 10/12/2019 12:26 PM CDT Please see [email or web address] response and request for additional documentation about inability to use crutches and advise. Chris Farrell RN * Telephone Encounter - Israel Genao DPM - 10/11/2019 4:17 PM CDT Order signed, will contact patient for mailing vs pick-up. Israel Genao DPM [facility] [phone] * Telephone Encounter - Tanja Botello ATC - 10/11/2019 3:51 PM CDT Please see [email or web address] message and advise. DME order pending Tanja Botello ATC documented in this encounter Plan of Treatment Not on file documented as of this encounter Visit Diagnoses Diagnosis PTTD (posterior tibial tendon dysfunction)- Primary Other disorders of synovium, tendon, and bursa S/P foot surgery, left documented in this encounter Care Teams Printer'S Devil Relationship Specialty Start Date End Date Jorge Palencia PA-C [place] [address] [place] [address] PCP - General 05/01/18 Israel Genao DPM [id number] [address] Assigned Musculoskeletal Provider 12/24/19 09/21/21 Israel Genao DPM [address] [address] Assigned Musculoskeletal Provider 04/06/22 10/23/23 documented as of this encounter
--- OUTSIDE RECORDS SUMMARY | 2023-11-14 16:12 | XMS_ITS | Encounter Summary ---
Author Organization [facility] Address [address] [place] [address] Care Team Providers Care Edi Developer Name Role Phone Jorge Palencia PA-C Primary Care Provider [phone] Israel Genao DPM Unavailable [phone] Israel Genao DPM Unavailable [phone] Reason for Referral * Diagnostic Imaging XR (Routine) - Closed Specialty Diagnoses / Procedures Referred By Jose barajas Referred To Contact Diagnoses Arthritis of right foot Procedures XR Joint Injection Small Right Israel Genao DPM [address] [facility] [address] [place] [address] Referral ID Status Reason Start Date Expiration Date Visits Re quested Visits Authorized [id number] Closed 09/13/2021 09/13/2022 1 1 Encounter Details Date Type Department Care Team (Late st Contact Info) Description 09/12/2021 [facility] Medical Advice [facility] [address] [facility] [address] [place] [address] Israel Genao DPM [address] [facility] [address] [place] [address] Arthritis of right foot (Primary [...] * Telephone Encounter - Tereza Solano - 09/12/2021 2:22 PM CDT Patient was last seen in office by Dr. Genao on 03/21/20. Patient last had XR guided right 2ndTMT joint steroid injection on 05/09/21 and reports 100% relief lasting ~ 4 months. Please advise if you would like to see the patient in clinic or if repeat injection order can be placed. Tereza Solano MBA, ATC documented in this encounter Plan of Treatment Not on file documented as of this encounter Results * XR Joint Injection Small Right (10/03/2021 10:38 AM CDT) Anatomical Region Laterality Modality Extremity Right Radio Fluoroscop y Impressions 10/03/2021 3:30 PM CDT IMPRESSION: ??Technically successful right second tarsometatarsal foot steroid/anesthetic injection with favorable initial pain relief. Long-term results pending. SIMON CARR PA-C Narrative 10/03/2021 3:30 PM CDT XR JOINT INJECTION SMALL RIGHT ? 10/03/2021 10:38 AM ?? History: ??right 2nd tarsometatarsal joint injection; Arthritis of right foot. Right foot pain. PROCEDURE: The risks (including bleeding, infection, and [...] to confirm intraarticular location of the needle tip.The steroid anesthetic mixture was then injected. Estimated blood loss during the procedure was less than 5 mL. No specimens collected. No initial complications. Fluoro time: 0.4 minutes Images Obtained: 1 Medications: 3 mL of 1% lidocaine, 1 mL of Isovue-M 200, 40 mg of Kenalog and 1 mL Marcaine 0.5% The patients pain level (0-10 scale) were as follows: PRE INJECTION ?? 5 POST INJECTION 0 Procedure Note Simon Carr PA-C - 10/03/2021 XR JOINT INJECTION SMALL RIGHT 10/03/2021 10:38 AM History: right 2nd tarsometatarsal joint injection; Arthritis of right foot. Right foot pain. PROCEDURE: The risks (including bleeding, infection, and [...] to confirm intraarticular location of the needle tip.The steroid anesthetic mixture was then injected. Estimated blood loss during the procedure was less than 5 mL. No specimens collected. No initial complications. Fluoro time: 0.4 minutes Images Obtained: 1 Medications: 3 mL of 1% lidocaine, 1 mL of Isovue-M 200, 40 mg of Kenalog and 1 mL Marcaine 0.5% The patients pain level (0-10 scale) were as follows: PRE INJECTION 5 POST INJECTION 0 IMPRESSION: Technically successful right second tarsometatarsal foot steroid/anesthetic injection with favorable initial pain relief. Long-term results pending. SIMON CARR PA-C Israel Genao DPM [facility] AGING ORDERABLES documented in this encounter Visit Diagnoses Diagnosis Arthritis of right foot- Primary Unspecified arthropathy, ankle and foot Arthritis of right foot Unspecified arthropathy, ankle and foot documented in this encounter Care Teams Edi Developer Relationship Specialty Start Date End Date Jorge Palencia PA-C [place] [address] [place] [address] PCP - General 05/01/18 Israel Genao DPM [id number] [address] Assigned Musculoskeletal Provider 12/24/19 09/21/21 Israel Genao DPM [address] [facility] [address] [place] [address] Assigned Musculoskeletal Provider 04/06/22 10/23/23 documented as of this encounter
== END 2023-11-14 16:07 | disposition home or self-care (01) ==
PROVIDERS: PCP Physician Assistant Medical; Visit Provider Family Medicine
DX: E78.2 Mixed hyperlipidemia (principal); R73.03 Prediabetes; Z11.59 Encounter for screening for other viral diseases; Z13.29 Encounter for screening for other suspected endocrine disorder
CPT/HCPCS: 80053; 80061; 84439; 84443; 86803

== ENCOUNTER 2024-01-09 14:36 | Outpatient (CLI) | payer OTHER, SELFPAY ==
--- NOTE | 2024-01-09 14:40 | CRLHL7_ITS ---
For Patients: As a result of the Century Cures Act, medical imaging exams and procedure reports are released immediately into your electronic medical record. You may view this report before your referring provider. If you have questions, please contact your health care provider. BILATERAL SCREENING MAMMOGRAM WITH COMPUTER-AIDED DETECTION AND TOMOSYNTHESIS TECHNIQUE: CC and MLO views were obtained. These mammographic images have been obtained using full-field digital technique. These mammographic images were interpreted with the benefit of computer-aided detection. Breast tomosynthesis was used in this interpretation. COMPARISON FILM: 10/07/22, 06/13/20, 07/17/17. FINDINGS: The breasts are heterogeneously dense, which may obscure small masses. IMPRESSION: There is no radiographic evidence for malignancy. ASSESSMENT: BI-RADS Category 1: Negative RECOMMENDATION: Routine screening mammogram in 1 year. A lay language report of this examination will be provided to the patient. RODNEY VEE M.D. Diagnostic Radiologist [email or web address] Transcribed: 01/15/2024, 2:[address]/Dictated by: Rodney Vee MD @ 01/15/2024 12:26:00 PM (Electronically Signed)
== END 2024-01-09 14:37 | disposition home or self-care (01) ==
PROVIDERS: PCP Physician Assistant Medical; Visit Provider Family Medicine
DX: Z12.31 Encounter for screening mammogram for malignant neoplasm of breast (principal); R92.333 Mammographic heterogeneous density, bilateral breasts
CPT/HCPCS: 77063; 77067

== ENCOUNTER 2024-04-01 16:37 | Outpatient (CLI) | payer OTHER, SELFPAY | END 2024-04-01 16:38 | disposition home or self-care (01) | PROVIDERS: PCP Physician Assistant Medical; Visit Provider Family Medicine | DX: E78.5 Hyperlipidemia, unspecified (principal); L65.9 Nonscarring hair loss, unspecified; R31.29 Other microscopic hematuria; E66.9 Obesity, unspecified | CPT/HCPCS: 80053; 80061; 84439; 84443; 84480 ==

== ENCOUNTER 2025-01-21 08:20 | Outpatient (CLI) | payer OTHER, SELFPAY | END 2025-01-21 08:21 | disposition home or self-care (01) | LOC: NFLDREF 01-27 13:41 | PROVIDERS: PCP Physician Assistant Medical; Referring Provider Physician Assistant Medical; Visit Provider Family Medicine | DX: E78.2 Mixed hyperlipidemia (principal) | CPT/HCPCS: 80053; 80061 ==